=== PATIENT | male | born 1990 | race Two or more races ===

== ENCOUNTER → 2022-08-07 | Emergency (ER) | payer SELFPAY ==
[~2022-08-07] VITALS: Ht 167.6 cm; Wt 100.0 kg
[~2022-08-07] MED LIST: HYDROcodone-ACET 10/325MG TAB PO ONE; LIDOCAINE 1% HCL (LOCAL ANESTH.) INJ 20ML MDV ID ONE; MORPHINE SULFATE 4 MG/ML SYR/VIAL IM ONE; ceFAZolin IM 1GM/2.5ML STERILE WATER IM ONE
[2022-08-07 20:22] VITALS: BP 133/78
== END | disposition home or self-care (01) ==
LOC: ER 17:04
DX: S62.611A Displaced fracture of proximal phalanx of left index finger, initial encounter for closed fracture (principal); S62.615A Displaced fracture of proximal phalanx of left ring finger, initial encounter for closed fracture; S61.412A Laceration without foreign body of left hand, initial encounter; V86.59XA Driver of other special all-terrain or other off-road motor vehicle injured in nontraffic accident, initial encounter; Y93.89 Activity, other specified; Y92.89 Other specified places as the place of occurrence of the external cause; Y99.8 Other external cause status
CPT/HCPCS: 12002; 73100; 73130; 96372; 99284; J0690; J2270